=== PATIENT | female | born 1960 | race American Indian/Alaskan Native ===

== ENCOUNTER 2018-11-29 16:24 | Outpatient (CLI) | payer OTHER ==
--- NOTE | 2018-11-29 17:37 | XRay Report ---
LUMBAR SPINE 3 VIEWS INDICATION / CLINICAL INFORMATION: LUMBAGO,SCIATICA RIGHT. COMPARISON: None available. FINDINGS: AP, lateral and coned lateral lumbar views. VERTEBRAE: No acute fracture. No significant malalignment. DISC SPACES / FACET JOINTS:Bzju-[id number] facet sclerosis in the lower lumbar spine. PARASPINAL SOFT TISSUES:No significant abnormality. Signer Name: Francis Jefferson MD Signed: 11/29/2018 5:33 PM Workstation Name: [id number]
== END 2018-11-29 16:25 | disposition home or self-care (01) ==
LOC: XRAY 16:24
PROVIDERS: ATTEND Internal Medicine
DX: Z02.71 Encounter for disability determination (principal); G95.89 Other specified diseases of spinal cord
CPT/HCPCS: 72100

== ENCOUNTER 2018-12-11 09:14 | Outpatient (CLI) | payer OTHER ==
[2018-12-11] MEDS ORDERED: PROVENTIL IH ONE (10:42)
== END 2018-12-11 09:15 | disposition home or self-care (01) ==
LOC: PF 09:14
PROVIDERS: ATTEND Internal Medicine
DX: J45.909 Unspecified asthma, uncomplicated (principal)
CPT/HCPCS: 94060; 94640

== ENCOUNTER 2020-09-22 11:49 | Emergency (ER) | payer SELFPAY ==
[2020-09-22] MEDS ORDERED: ASPIRIN 325 MG TAB PO ONE (11:59)
--- NOTE | 2020-09-22 12:47 | XRay Report ---
CHEST 2 VIEWS INDICATION: CP/SOB. COMPARISON: None FINDINGS: Support devices: None. Heart: Within normal limits. Lungs/pleura: No acute air space or interstitial disease. No pneumothorax. Additional findings: None. IMPRESSION: No acute findings. Signer Name: John Jefferson Jr, MD Signed: 09/22/2020 12:38 PM Workstation Name: [id number]
[2020-09-22 14:49] LABS: Alanine Aminotransferase 13 units/L (7-56); Albumin 4.3 g/dL (3.9-5); Blood Urea Nitrogen 11 mg/dL (7-17); Calcium 9.5 mg/dL (8.4-10.2); Hemolysis Index 6
[2020-09-22 14:50] LABS: BUN/Creatinine Ratio 22
[2020-09-22 14:54] LABS: Basophils # (Auto) 0.1 K/mm3 (0.0-0.1); Basophils % (Auto) 1.1 % (0.0-1.8); Eosinophils # (Auto) 0.2 K/mm3 (0.0-0.4); Eosinophils % (Auto) 3.6 % (0.0-4.3); Hematocrit 41.8 % (30.3-42.9); Hemoglobin 13.8 gm/dl (10.1-14.3); Lymphocytes # (Auto) 2.1 K/mm3 (1.2-5.4); Lymphocytes % (Auto) 37.9 % (13.4-35.0); Mean Corpuscular HGB Conc 33 % (30-34); Mean Corpuscular Volume 81 fl (79-97); Monocytes # (Auto) 0.5 K/mm3 (0.0-0.8); Monocytes % (Auto) 8.2 % (0.0-7.3); Platelet Count 298 K/mm3 (140-440); Red Blood Count 5.15 M/mm3 (3.65-5.03); Red Cell Distribution Width 14.7 % (13.2-15.2)
[2020-09-22 16:39] VITALS: BP 138/74
--- NOTE | 2020-09-22 18:06 | Emergency Department Report ---
ED General Adult HPI - General Chief complaint: Dyspnea/Respdistress Stated complaint: SOB/ASTHMATIC Time Seen by Provider: 09/22/20 17:32 Source: patient Mode of arrival: Ambulatory Limitations: No Limitations - History of Present Illness Initial comments: 60-year-old female patient with history of asthma presents to the emergency department with complaints of nonproductive cough, nasal congestion, sore throat, and shortness of breath starting yesterday. Patient has been exposed to multiple sick contacts in her household exhibiting similar symptoms. She has been vaccinated for COVID-19. She used her mother's Albuterol inhaler with limited relief. Patient has not experienced an asthma exacerbation in several years. She has never required hospitalization for her asthma. No current steroid or antibiotic use. No recent travel. Denies fever, chills, chest pain, nausea, vomiting, diaphoresis, wheezing, hemoptysis. Denies all other complai nts at this time. - Related Data Previous Rx's Medication Instructions Recorded Last Taken Type Albuterol Sulfate [Proair 90 mcg IH Q4H PRN #1 aer.pw.bas 09/22/20 Unknown Rx Digihaler] predniSONE [Deltasone] 20 mg PO QDAY 5 Days tab 09/22/20 Unknown Rx Allergies Allergy/AdvReac Type Severity Reaction Status Date / Time Penicillins Allergy Unknown Unverified 12/11/18 09:11 ED Review of Systems ROS: Stated complaint: SOB/ASTHMATIC Other details as noted in HPI Other: GENERAL: Negative for fever, chills, weight change, anorexia, fatigue. ENT: Positive for sore throat and nasal congestion. CARDIOVASCULAR: Negative for chest pain, palpitations, lower extremity swelling. PULMONARY: Positive for cough and shortness of breath. GASTROINTESTINAL: Negative for abdominal pain, nausea, vomiting, diarrhea, constipation. MUSCULOSKELETAL: Negative for joint pain, joint swelling, myalgias, back pain, neck pain. NEUROLOGICAL: Negative for headache, seizure, syncope, paresthesias, weakness. INTEGUMENTARY: Negative for erythema, rash, diaphoresis, laceration, ecchymosis. HEMATOLOGICAL: Negative for hemoptysis, hematemesis, hematochezia, hematuria. PSYCHIATRIC: Negative for hallucinations, suicidal ideation, homicidal ideation, anxiety, depression. ED Past Medical Hx - Past Medical History Previous Medical History?: Yes Hx Asthma: Yes - Surgical History Past Surgical History?: Yes Additional Surgical History: 2 , ortho surgeries. - Medications Home Medications: Home Medications Medication Instructions Recorded Confirmed Last Taken Type Albuterol Sulfate [Proair 90 mcg IH Q4H PRN #1 aer.pw.bas 09/22/20 Unknown Rx Digihaler] predniSONE [Deltasone] 20 mg PO QDAY 5 Days tab 09/22/20 Unknown Rx ED Physical Exam - General Limitations: No Limitations - Other Other exam information: General: Awake and alert. No acute distress. Head: Atraumatic, normocephalic. Eyes: EOMI. Pupils are equal and round. Normal sclera and conjunctiva. ENT: Nasal congestion present. Oral mucosa is moist. Pharyngeal erythema without swelling or exudate. Uvula is midline and nonedematous. Neck: Supple. No lymphadenopathy. Pulmonary: Intermittent nonproductive cough noted. No respiratory distress. Clear to auscultation bilaterally. Cardiac: Regular rate and rhythm. Pulses are palpable and equal bilaterally. No lower extremity cyanosis or edema. Skin: Warm and dry. No rashes. Abdomen: Soft, non-tender, non-protuberant. No guarding, rigidity, or rebound. Bowel sounds are normal. No organomegaly or masses noted. Back: Normal alignment. No CVA tenderness. Extremities: Symmetrical. Full range of motion intact. Neurological: Alert and oriented, appropriately interactive, no focal deficits. Psych: Cooperative. Appropriate mood and affect. Speech is evenly metered. Thoughts are logically construed. ED Course Vital Signs 09/22/20 11:58 Temperature 98.1 F Pulse Rate 82 Respiratory 22 Rate Blood Pressure 138/74 O2 Sat by Pulse 97 Oximetry ED Medical Decision Making - Lab Data Result diagrams: 09/22/20 13:41 09/22/20 13:41 - EKG Data 09/22/20 18:07 EKG shows normal sinus rhythm with a ventricular rate of 73 bpm. Normal axis. Normal AL interval. Normal QT interval. Good R wave progression. No ST segment changes. Over read by attending emergency physician, who agrees with this interpretation - Medical Decision Making Differential diagnosis including but not limited to: pneumonia, influenza, viral upper respiratory infection, pertussis, asthma exacerbation Patient with history of well-controlled asthma presents to the emergency department with signs/symptoms suggestive of viral upper respiratory infection. No hypoxia, no respiratory distress, tolerating oral intake without difficulty, ambulatory without assistance. Chest x-ray without acute process. EKG obtained prior to MSE without acute injury pattern. Exceedingly low clinical suspicion for ACS; chest pain protocol work-up ordered by occupational therapy supervisor prior to MSE cancelled. COVID-19 testing is currently unavailable at this facility. Patient will be discharged home with appropriate symptomatic treatment and referred to primary care provider for close outpatient follow-up. She was offered a prescription for cough medicine but politely refused. Disease transmission precautions discussed. Strict return precautions provided. Repeat exam is unremarkable and benign. History, exam, diagnostic testing, and current condition do not suggest worrisome pathology to warrant further testing, continued ED treatment, admission, or surgical evaluation at this point. Given the low probability of a significant medical illness, it would be more likely to result in harm than benefit to perform further testing at this stage. Discussed findings, presumptive diagnosis, need for follow-up and specific signs/symptoms that should prompt immediate return to the emergency department. Instructions were explained in detail to the patient in addition to giving written discharge information. Patient expressed understanding and was given the opportunity to ask questions, all of which were satisfactorily answered prior to discharge home. Critical care attestation.: If time is entered above; I have spent that time in minutes in the direct care of this critically ill patient, excluding procedure time. ED Disposition Clinical Impression: Viral upper respiratory tract infection with cough, History of asthma Disposition: DC-01 TO HOME OR SELFCARE Is pt being admited?: No Does the pt Need Aspirin: No Condition: Stable Instructions: Upper Respiratory Infection, Adult Additional Instructions: Take Tylenol every 4 hours and Motrin every 8 hours as needed for pain. Use Albuterol inhaler as directed. Take Prednisone with food as directed. Honey is an excellent natural cough suppressant. Exposure to warm humidified air may help relieve cough/congestion. Rest. Drink plenty of fluids. Wash hands frequently to prevent disease transmission. Do not share food or drinks with others. Follow-up with primary care provider this week. Call tomorrow to schedule an appointment. Return to the emergency department immediately for new or worsening symptoms. Prescriptions: predniSONE [Deltasone] 20 mg PO QDAY 5 Days tab Albuterol Sulfate [Proair Digihaler] 90 mcg IH Q4H PRN #1 aer.pw.bas PRN Reason: Shortness Of Breath Referrals: [facility] [Provider Group] - 3-5 Days Time of Disposition: 18:06
--- NOTE | 2020-09-23 10:20 | Electrocardiograph Report ---
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
== END 2020-09-22 18:23 | disposition home or self-care (01) ==
LOC: ED 11:49
DX: J06.9 Acute upper respiratory infection, unspecified (principal); J45.909 Unspecified asthma, uncomplicated
CPT/HCPCS: 36415; 71046; 80053; 84484; 85025; 93005; 99283

== ENCOUNTER 2021-01-12 10:23 | Outpatient (CLI) | payer OTHER ==
--- NOTE | 2021-01-12 11:38 | XRay Report ---
XR hip 2-3V RT INDICATION / CLINICAL INFORMATION: PAIN. COMPARISON: None available. FINDINGS: BONES/JOINT(S): No acute fracture or subluxation. No significant degenerative changes. SOFT TISSUES: No significant abnormality. ADDITIONAL FINDINGS: None. Signer Name: Henry Main MD Signed: 01/12/2021 11:34 AM Workstation Name: [id number]
--- NOTE | 2021-01-12 11:38 | XRay Report ---
XR shoulder 2+V LT INDICATION / CLINICAL INFORMATION: PAIN. COMPARISON: None available. FINDINGS: BONES/JOINT(S): No acute fracture or subluxation. 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 SOFT TISSUES: No significant abnormality. ADDITIONAL FINDINGS: None. Signer Name: Henry Main MD Signed: 01/12/2021 11:33 AM Workstation Name: [id number]
--- NOTE | 2021-01-12 11:39 | XRay Report ---
XR knee BILAT 1-2V INDICATION / CLINICAL INFORMATION: PAIN. COMPARISON: None available. FINDINGS: BONES/JOINT(S): No acute fracture or subluxation. Previous right knee arthroplasty. Moderate osteoart hritis in the left knee. There is a small joint effusion in the right knee. SOFT TISSUES: No significant abnormality. ADDITIONAL FINDINGS: None. Signer Name: Henry Main MD Signed: 01/12/2021 11:34 AM Workstation Name: [id number]
== END 2021-01-12 10:24 | disposition home or self-care (01) ==
LOC: XRAY 10:23
PROVIDERS: ATTEND Internal Medicine
DX: M19.012 Primary osteoarthritis, left shoulder (principal); M17.0 Bilateral primary osteoarthritis of knee; M25.461 Effusion, right knee